=== PATIENT | female | born 1975 | race Caucasian/White ===

== ENCOUNTER 2017-05-27 12:47 | Emergency (ER) | payer MEDICAID ==
[~2017-05-27] VITALS: Ht 152.4 cm; Wt 61.4 kg
[~2017-05-27 12:47] MED LIST: DIPH25CA2 PO; IBUP-2070 PO
[2017-05-27 12:50] VITALS: BP 129/70
== END 2017-05-27 13:43 | disposition left against medical advice (07) ==
LOC: EMS 12:48
DX: M79.604 Pain in right leg (principal); Z53.21 Procedure and treatment not carried out due to patient leaving prior to being seen by health care provider

== ENCOUNTER 2017-05-27 18:09 | Emergency (ER) | payer MEDICAID ==
[~2017-05-27] VITALS: Ht 157.5 cm; Wt 135.0 kg
[2017-05-27] MEDS ORDERED: IBUPROFEN 800 MG TABLET PO ONE (18:45)
[2017-05-27] MEDS ORDERED: TraMADol HCL 50 MG TABLET PO ONE (19:45)
[2017-05-27 20:33] VITALS: BP 131/59
== END 2017-05-27 20:43 | disposition home or self-care (01) ==
LOC: EMS 18:16
DX: L03.115 Cellulitis of right lower limb (principal); L08.9 Local infection of the skin and subcutaneous tissue, unspecified; Z88.1 Allergy status to other antibiotic agents; Z88.0 Allergy status to penicillin
CPT/HCPCS: 99283

== ENCOUNTER 2020-07-20 00:01 | Emergency (ER) | payer SELFPAY ==
[~2020-07-20] VITALS: Ht 154.9 cm; Wt 61.4 kg
[2020-07-20 00:13] VITALS: BP 114/88
[2020-07-20] MEDS ORDERED: PredniSONE 20 MG TABLET PO ONE (01:45)
== END 2020-07-20 01:58 | disposition home or self-care (01) ==
LOC: EMS 00:02
DX: L50.9 Urticaria, unspecified (principal); Z88.0 Allergy status to penicillin; Z88.1 Allergy status to other antibiotic agents
CPT/HCPCS: 99283; J7512

== ENCOUNTER 2022-02-05 23:40 | Emergency (ER) | payer MEDICAID ==
[~2022-02-05] VITALS: Ht 154.9 cm; Wt 60.9 kg
[2022-02-06] MEDS ORDERED: IBUP-1554 PO (01:47)
[2022-02-06] MEDS ORDERED: CLIN300C58 PO (01:47)
[2022-02-06] MEDS ORDERED: HYDR-4723 PO (01:47)
[2022-02-06 01:58] VITALS: BP 125/71
== END 2022-02-06 02:02 | disposition home or self-care (01) ==
LOC: EMS 23:42
DX: K04.7 Periapical abscess without sinus (principal); K08.89 Other specified disorders of teeth and supporting structures; K00.7 Teething syndrome; Z88.0 Allergy status to penicillin
CPT/HCPCS: 99283; Z7502